=== PATIENT | male | born 1950 ===

== ENCOUNTER 2021-07-01 13:44 | Day surgery (SDC) | payer MEDICARE, OTHER ==
[2021-06-30 21:30] VITALS: BP 150/86; PULSE 63
[2021-07-01] VITALS (9 sets, daily range): BP systolic 123–155; BP diastolic 74–85; PULSE 54–73; TEMP 97.9–98.3
[~2021-07-01] VITALS: Ht 182.9 cm; Wt 98.4 kg
[2021-07-01] MEDS ORDERED: HCTZ12.5TAB PO (15:26)
[2021-07-01] MEDS ORDERED: MICARDIS80 MG PO (15:27)
--- NOTE | 2021-07-01 20:00 | NUR ---
Pt. sitting up in bed. Pt. is A&OX3, assessmnet complete. INT to lt. hand patent. Yo catheter to DD, bloody urine noted. CBI running wide open at this time, will monitor. Pt. denies further needs, call light within reach.
--- NOTE | 2021-07-01 23:40 | NUR ---
Pt. reports sharp bladder pains and the has urination arould the catheter. PT. also reports that his foreskin is up and would like it down. This nurse attempted to move foreskin down without success. Dr. Farah called for levsin and reported about foreskin issue. New orders received. Second attempt to get foreskin down was a success.
[2021-07-02 00:04] VITALS: BP 122/71; PULSE 80; TEMP 97.9
[2021-07-02 03:49] VITALS: BP 122/71; PULSE 69; TEMP 98.4
[2021-07-02] MEDS ORDERED: PYRIDIUM 100MG100 MG PO (07:31)
[2021-07-02 07:46] VITALS: BP 120/71; PULSE 65; TEMP 97.8
--- NOTE | 2021-07-02 08:00 | NUR ---
PATIENT IS A&O. VSS. NO COMPLAINTS OF PAIN OR NAUSEA. SANCHEZ TO DD WITH REDDISH COLORED URINE NOTED, NO CLOTS. CBI CLAMPED. WILL MONITOR THIS AM AND IF URINE CLEARS UP, PLAN TO P&P. IF NOT, PATIENT WILL LIKELY STAY ON CBI TODAY. WILL MONITOR. HEAD TO TOE ASSESSMENT COMPLETE. AM MEDS GIVEN. BREAKFAST TRAY AT BEDSIDE. LEFT FORARM IV TO INT. NO OTHER NEEDS AT THIS TIME. CALL LIGHT IN REACH.
--- NOTE | 2021-07-02 10:10 | NUR ---
NOTED DARK BLOODY URINE IN SANCHEZ TUBING SINCE CBI CLAMPED. NO CLOTS. NOTIFIED UROLOGY AND WAITING FOR A RETURN CALL.
--- NOTE | 2021-07-02 10:15 | NUR ---
UROLOGY ORDER TO RESTART CBI AT SLOW RATE AND DC SANCHEZ IN AM. DISCHARGE CANCELED AT THIS TIME.
[2021-07-02 12:32] VITALS: BP 126/70; PULSE 72; TEMP 97.9
[2021-07-02 16:27] VITALS: BP 123/67; PULSE 73; TEMP 97.3
[2021-07-02 19:41] VITALS: BP 113/62; PULSE 85; TEMP 97.9
--- NOTE | 2021-07-02 21:00 | NUR ---
Pt. laying in bed. Pt. is A&OX3, assessment complete. INT to lt. hand patent. Yo catheter to DD, with CBI running at a slow rate, urine is pink at this time. Pt. reports pain at a 5 on pain scale, gave pain meds per orders. Pt. denies further needs, call light within reach.
[2021-07-03 03:09] VITALS: BP 102/54; PULSE 67; TEMP 97.8
--- NOTE | 2021-07-03 07:12 | NUR ---
Yo catheter discontinued at this time. Pt. tolerated well. Reviewed 6 bottle with the pt. Pt. voices understanding.
[2021-07-03 08:24] VITALS: BP 115/73; PULSE 79; TEMP 98
--- NOTE | 2021-07-03 09:26 | NUR ---
SW met with the patient to discuss discharge plan. The patient lives in [place] with his , Lilliam (ph#[phone]). He reports independence with ADLs and does not have any DME. The patient's PCP is Dr. Shahzad Katz and he receives his medications from [facility] in [place]. The patient does not have a DPOA-HC in EMR, but he states that he does have one completed and that it designates his . The patient plans on returning home with his upon discharge. No additional needs at this time. *Discharge plan: home with *
--- NOTE | 2021-07-03 14:13 | NUR ---
PT MET CRITERIA FOR DISCHARGE, VSS. PT VOIDING ADEQUATELY WITHOUT DIFFICULTY. IV REMOVED WITH NO COMPLICATIONS, CATHETER INTACT. DISCHARGE INSTRUCTIONS REVIEWED, PT VERBALIZED UNDERSTANDING. PT AWARE OF F/U APPT AND OF PRESCRIPTIONS TO MELTER OPERATOR. PT DC TO HOME VIA AMBULATION ACCOMPANIED BY GAS MANAGER.
== END 2021-07-03 14:15 | disposition home or self-care (01) ==
LOC: SDCO 13:44 → SURG 18:30 → SDCO 07-03 14:15
DX: N40.1 Benign prostatic hyperplasia with lower urinary tract symptoms (principal); N13.8 Other obstructive and reflux uropathy; R35.1 Nocturia; R39.14 Feeling of incomplete bladder emptying; R33.8 Other retention of urine; R39.12 Poor urinary stream; I10 Essential (primary) hypertension
CPT/HCPCS: OP; J0690; J2250; J2270; J2704; J3010; J3480; J7120

== ENCOUNTER 2021-07-25 15:51 | Emergency (ER) | payer MEDICARE, OTHER ==
[~2021-07-25] VITALS: Ht 182.9 cm; Wt 95.5 kg
[~2021-07-25 15:51] MED LIST: HCTZ12.5TAB PO; MICARDIS80 MG PO; PYRIDIUM 100MG100 MG PO
[2021-07-25 17:37] LABS: BASO # 0.1 K/mm3 (0.0-0.2); BASO % 0.6 % (0.0-2.0); EOS % 0.2 % (0.0-4.0); GRAN # 8.5 K/mm3 (1.4-6.5); GRAN % 89.2 % (42.2-75.2); HEMATOCRIT 44.8 % (42.0-52.0); HEMOGLOBIN 15.3 g/dl (13.5-18.0); LYMPH # 0.4 K/mm3 (1.2-3.4); LYMPH % 4.2 % (20.0-51.0); MEAN CELL VOLUME 94 fl (80.0-100.0); MEAN CORPUSCULAR HEMOGLOBIN 32 pg (27-31); MEAN CORPUSCULAR HGB CONC 34 g/dl (33.0-37.0); MEAN PLATELET VOLUME 11.1 fl (7.4-10.4); MONO # 0.5 K/mm3 (0.1-0.6); MONO % 5.5 % (1.7-9.3); PLATELET COUNT 232 K/mm3 (130-400); RED BLOOD COUNT 4.79 M/mm3 (4.20-5.60); REDCELL DISTRIBUTION WIDTH-CV 12.1 % (11.5-14.5)
[2021-07-25 17:49] LABS: COLLECTION METHOD CLEAN CATCH
[2021-07-25 17:50] VITALS: TEMP 103
[2021-07-25 17:57] LABS: ALBUMIN 3.9 gm/dL (3.4-4.8); BILIRUBIN,TOTAL 1.4 mg/dL (0.2-1.2); CALCIUM 10.2 mg/dL (8.4-10.2); CREATININE, serum 1.42 mg/dL (0.72-1.25); POTASSIUM 4.1 mmol/L (3.5-4.5); TOTAL PROTEIN 7.4 gm/dL (6.2-8.1)
[2021-07-25 18:19] LABS: PH 6 (5-8); SQUAMOUS EPITHELIAL None Seen /hpf (0-10); URINE APPEARANCE Turbid (CLEAR/HAZY); URINE BACTERIA Rare /hpf (NONE SEEN); URINE BILIRUBIN Negative (NEGATIVE); URINE BLOOD 3+ (NEGATIVE); URINE COLOR Amber (YELLOW); URINE GLUCOSE Negative (NEGATIVE); URINE KETONE Trace (NEGATIVE); URINE LEUKOCYTE ESTERASE 1+ (NEGATIVE); URINE NITRATE Negative (NEGATIVE); URINE PROTEIN(semi-quant) 2+ (NEGATIVE); URINE RBC >50 /hpf (0-2); URINE UROBILINOGEN Negative (NEGATIVE)
[2021-07-25] MEDS ORDERED: CEPHALEXIN500 M1 PO ×2 (18:48)
[2021-07-25 20:03] VITALS: BP 126/78; PULSE 76
== END 2021-07-25 20:03 | disposition home or self-care (01) ==
LOC: COL.ER 15:51
PROVIDERS: Emergency Medicine
DX: N39.0 Urinary tract infection, site not specified (principal); R31.9 Hematuria, unspecified; I10 Essential (primary) hypertension; Z79.899 Other long term (current) drug therapy; Z20.822 Contact with and (suspected) exposure to COVID-19
CPT/HCPCS: J0696; J7030

== ENCOUNTER 2021-07-26 16:07 | Inpatient (IN) | payer MEDICARE, OTHER ==
[~2021-07-26] VITALS: Ht 177.8 cm; Wt 99.6 kg
[~2021-07-26 16:07] MED LIST changes: +CEPHALEXIN500 M1 PO
[2021-07-26 17:11] LABS: BASO # 0.1 K/mm3 (0.0-0.2); BASO % 0.7 % (0.0-2.0); EOS % 0.2 % (0.0-4.0); GRAN # 7.9 K/mm3 (1.4-6.5); GRAN % 86.1 % (42.2-75.2); HEMATOCRIT 40.9 % (42.0-52.0); HEMOGLOBIN 13.8 g/dl (13.5-18.0); LYMPH # 0.5 K/mm3 (1.2-3.4); LYMPH % 5.1 % (20.0-51.0); MEAN CELL VOLUME 94 fl (80.0-100.0); MEAN CORPUSCULAR HEMOGLOBIN 32 pg (27-31); MEAN CORPUSCULAR HGB CONC 34 g/dl (33.0-37.0); MEAN PLATELET VOLUME 11.1 fl (7.4-10.4); MONO # 0.7 K/mm3 (0.1-0.6); MONO % 7.5 % (1.7-9.3); PLATELET COUNT 195 K/mm3 (130-400); RED BLOOD COUNT 4.37 M/mm3 (4.20-5.60); REDCELL DISTRIBUTION WIDTH-CV 12.3 % (11.5-14.5)
[2021-07-26 17:19] LABS: ALBUMIN 3.3 gm/dL (3.4-4.8); BILIRUBIN,TOTAL 1.3 mg/dL (0.2-1.2); CALCIUM 9.5 mg/dL (8.4-10.2); CREATININE, serum 1.26 mg/dL (0.72-1.25); POTASSIUM 3.9 mmol/L (3.5-4.5); TOTAL PROTEIN 6.4 gm/dL (6.2-8.1)
[2021-07-26 17:57] LABS: COLLECTION METHOD CLEAN CATCH
[2021-07-26 18:10] LABS: MUCOUS Present (NOT PRESENT); PH 5 (5-8); SQUAMOUS EPITHELIAL None Seen /hpf (0-10); URINE APPEARANCE Cloudy (CLEAR/HAZY); URINE BACTERIA Rare /hpf (NONE SEEN); URINE BILIRUBIN Negative (NEGATIVE); URINE BLOOD 2+ (NEGATIVE); URINE COLOR Yellow (YELLOW); URINE GLUCOSE Negative (NEGATIVE); URINE KETONE Negative (NEGATIVE); URINE LEUKOCYTE ESTERASE 3+ (NEGATIVE); URINE NITRATE Negative (NEGATIVE); URINE PROTEIN(semi-quant) 1+ (NEGATIVE); URINE RBC >50 /hpf (0-2); URINE UROBILINOGEN Negative (NEGATIVE)
--- NOTE | 2021-07-26 21:10 | NUR ---
PT ADMITTED TO ROOM 328 FROM ED. TEMP 102.2. NOTIFIED TRINA MCCRARY OF THIS.
[2021-07-26 21:14] VITALS: BP 149/68; PULSE 95; TEMP 102.2
[2021-07-27 00:23] VITALS: BP 112/53; PULSE 79; TEMP 99.1
[2021-07-27 03:19] VITALS: BP 110/64; PULSE 71; TEMP 99.1
[2021-07-27 08:02] VITALS: BP 117/65; PULSE 76; TEMP 98.8
--- NOTE | 2021-07-27 08:12 | NUR ---
Pt assessment complete. Pt is laying in bed upon entry, he is A/O x4. His breathing is even and unlabored on RA. Pt denies any SOB. No N/V. Reports a headache this am, PRN Tylenol administered. No other needs at this time. Call light within reach.
--- NOTE | 2021-07-27 08:43 | NUR ---
Pt vomitted up breakfast per his report. Feeling better and is not requiring PRN ZOfran at this time.
[2021-07-27 10:18] LABS: CALCIUM 9.7 mg/dL (8.4-10.2); CREATININE, serum 1.18 mg/dL (0.72-1.25); POTASSIUM 3.8 mmol/L (3.5-4.5)
--- NOTE | 2021-07-27 10:30 | NUR ---
SW met with patient to complete intake. Patient states that he lives with his Lilliam Cuello [phone]. He also provides that she has been appointed as his DPOA-HC. Patient provides that he does not utilze DME and is independent with ADL's. Patient also confirmed that he does not utilize HH services and does not recieve outside services in his home. Patient states that his PCP is Dr. Bryant and pharmacy is [facility]. Patiet states his plan is to return to his home up [place] and has no questions or concerns with doing so. SW will continue to follow. DC plan: home with spouse
[2021-07-27 12:00] VITALS: BP 108/60; PULSE 61; TEMP 97.5
[2021-07-27 15:47] VITALS: BP 109/54; PULSE 68; TEMP 98.2
--- NOTE | 2021-07-27 19:30 | NUR ---
PT SITTING IN RECLINER. HERE. VERY SUPPORTIVE. DENIES PAIN OR DIFFICULTY VOIDING.
[2021-07-27 20:00] VITALS: BP 116/56; PULSE 73; TEMP 98.5
--- NOTE | 2021-07-27 23:57 | NUR ---
PT HAVING MULTIPLE PVC'S. REPORTED TO MARJORIE MCCRARY. STAT EKG ORDERED.
[2021-07-28] VITALS (7 sets, daily range): BP systolic 100–122; BP diastolic 42–67; PULSE 39–88; TEMP 97.8–99.4
--- NOTE | 2021-07-28 00:12 | NUR ---
EKG DONE. NOTIFIED MARJORIE MCCRARY.
--- NOTE | 2021-07-28 00:12 | NUR ---
LAB ORDERED. PT INFORMED.
--- NOTE | 2021-07-28 01:53 | NUR ---
PT RESTING AT THIS TIME.
[2021-07-28 02:34] LABS: CALCIUM 9.3 mg/dL (8.4-10.2); CREATININE, serum 1.09 mg/dL (0.72-1.25); MAGNESIUM 1.9 mg/dL (1.6-2.6); POTASSIUM 3.6 mmol/L (3.5-4.5)
--- NOTE | 2021-07-28 03:05 | NUR ---
STARTED MAGNESIUM 2G IV AT THIS TIME AND PT DRANK POTASSIUM EFFERECENT IN OJ.
[2021-07-28 06:40] LABS: BASO # 0.1 K/mm3 (0.0-0.2); BASO % 0.8 % (0.0-2.0); EOS # 0.2 K/mm3 (0.0-0.7); EOS % 3.3 % (0.0-4.0); GRAN # 4.2 K/mm3 (1.4-6.5); GRAN % 64.7 % (42.2-75.2); HEMOGLOBIN 12.7 g/dl (13.5-18.0); LYMPH # 1.1 K/mm3 (1.2-3.4); LYMPH % 17.6 % (20.0-51.0); MEAN CELL VOLUME 91 fl (80.0-100.0); MEAN CORPUSCULAR HEMOGLOBIN 32 pg (27-31); MEAN CORPUSCULAR HGB CONC 35 g/dl (33.0-37.0); MEAN PLATELET VOLUME 11.5 fl (7.4-10.4); MONO # 0.9 K/mm3 (0.1-0.6); MONO % 13.3 % (1.7-9.3); PLATELET COUNT 189 K/mm3 (130-400); RED BLOOD COUNT 3.96 M/mm3 (4.20-5.60); REDCELL DISTRIBUTION WIDTH-CV 12.2 % (11.5-14.5)
[2021-07-28 06:52] LABS: HEMATOCRIT 36.2 % (42.0-52.0)
--- NOTE | 2021-07-28 08:51 | NUR ---
Pt sitting up in chair during assessment. Pt is quiet although reports doing well. No pain complaints. He is up independently in his room and is steady on his feet. Pt has ordered breakfast. He reported that he got sick to his stomach and threw up yesterday after the rocephin was given, no issues today. No needs verbalized, call light within reach
--- NOTE | 2021-07-28 15:28 | NUR ---
Pt continues to do well. is present in the room at this time. She did bring some personal belongings for him and he is requesting to take a shower. pt reports not having any pain. IV abx is complete. No other needs verbalized, call light within reach
--- NOTE | 2021-07-28 20:00 | NUR ---
PT INDEPENDENT IN ROOM. HAS LEFT FOR THE NIGHT. IV ANTIBIOTIC INFUSING WITHOUT PROBLEM TO LEFT AC SITE. DENIES PAIN OR BURNING WITH URINATION.
--- NOTE | 2021-07-28 23:00 | NUR ---
ANTIBIOTIC COMPLETE. PT IN BED. WILL MONITOR FOR CHANGES.
[2021-07-29 03:41] VITALS: BP 105/41; PULSE 80; TEMP 97.8
[2021-07-29 07:21] LABS: CALCIUM 9.4 mg/dL (8.4-10.2); CREATININE, serum 1.18 mg/dL (0.72-1.25); POTASSIUM 3.7 mmol/L (3.5-4.5)
[2021-07-29 07:26] LABS: BASO # 0.1 K/mm3 (0.0-0.2); EOS # 0.2 K/mm3 (0.0-0.7); EOS % 3.6 % (0.0-4.0); GRAN # 3.7 K/mm3 (1.4-6.5); GRAN % 60.9 % (42.2-75.2); HEMOGLOBIN 12.6 g/dl (13.5-18.0); LYMPH # 1.3 K/mm3 (1.2-3.4); LYMPH % 21.4 % (20.0-51.0); MEAN CELL VOLUME 92 fl (80.0-100.0); MEAN CORPUSCULAR HEMOGLOBIN 32 pg (27-31); MEAN CORPUSCULAR HGB CONC 34 g/dl (33.0-37.0); MEAN PLATELET VOLUME 11.8 fl (7.4-10.4); MONO # 0.8 K/mm3 (0.1-0.6); MONO % 12.6 % (1.7-9.3); PLATELET COUNT 210 K/mm3 (130-400); RED BLOOD COUNT 3.98 M/mm3 (4.20-5.60); REDCELL DISTRIBUTION WIDTH-CV 12.2 % (11.5-14.5)
[2021-07-29 07:28] LABS: HEMATOCRIT 36.6 % (42.0-52.0)
[2021-07-29 07:57] VITALS: BP 105/65; TEMP 98
[2021-07-29] MEDS ORDERED: CIPRO 500MG TA500 MG PO (08:56)
[2021-07-29] MEDS ORDERED: PROBIOTIC ACID1 EAC3 PO (08:57)
[2021-07-29] MEDS ORDERED: ZOFRAN ODT4 MG PO (08:57)
--- NOTE | 2021-07-29 09:07 | NUR ---
PT UP TO RECLINER FOR BREAKFAST. HOSPITALIST ROUNDING PLAN ON DISCHARGE LATER TODAY.
[2021-07-29 11:29] VITALS: BP 96/52; PULSE 71; TEMP 98.3
--- NOTE | 2021-07-29 11:57 | NUR ---
First visit from the telecommunicator supervisor. No needs right now.
--- NOTE | 2021-07-29 12:52 | NUR ---
DISCHARGE INSTRUCTIONS REVIEWED WITH PT AND QUESTIONS SOLICITED AND ANSWERED. PT LEFT UNIT AMBULATORY.
--- NOTE | 2021-07-29 13:33 | NUR ---
Event Manager met with patient who is set to discharge home today. SW reviewed IM form with patient who verbalized understanding and provided signature. SW placed form in chart and provided copy to patient.
== END 2021-07-29 12:30 | disposition home or self-care (01) | DRG 690 ==
LOC: COL.ER 16:07 → SURG 17:20 → MEDICAL 17:20 → SURG 17:21
PROVIDERS: Family Medicine; Internal Medicine; Physician Assistant; Student in an Organized Health Care Education/Training Program; ADMIT Student in an Organized Health Care Education/Training Program
DX: N39.0 Urinary tract infection, site not specified (principal); R78.81 Bacteremia; I10 Essential (primary) hypertension; B96.1 Klebsiella pneumoniae [K. pneumoniae] as the cause of diseases classified elsewhere; N40.0 Benign prostatic hyperplasia without lower urinary tract symptoms; B95.2 Enterococcus as the cause of diseases classified elsewhere; Z88.2 Allergy status to sulfonamides; Z88.1 Allergy status to other antibiotic agents; Z23 Encounter for immunization
CPT/HCPCS: 99232-AI; 99233-AI; 99239; J0696; J1650; J2543; J3475; J7030